=== PATIENT | male | born 1950 | race African-American/Black ===

== ENCOUNTER 2025-04-29 08:19 | Inpatient (IN) | payer OTHER, MEDICARE ==
[2025-04-29] VITALS (13 sets, daily range): BP systolic 103–131; BP diastolic 63–84; PULSE 56–96; RESP 14–22; TEMP 97.4–98.3; O2SAT 90–99
[~2025-04-29] VITALS: Ht 182.9 cm; Wt 95.2 kg
--- NOTE | 2025-04-29 08:31 | ECG ---
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
[2025-04-29] MEDS: ALBUTEROL SULF 2.5 MG/0.5ML(0.5%) NEB SOLN NEB ONE ×2 (08:49→11:19)
[2025-04-29] MEDS: IPRATROPIUM BROM 0.5 MG/2.5ML INH SOL NEB ONE ×2 (08:50→11:19)
--- NOTE | 2025-04-29 08:53 | ED.PDOC ---
SOB-HPI HPI Comments This is a 74 year old male SHAHLA presenting to the ED with chief complaint of SOB/chest pain. Patient reports that after feeding his pets yesterday morning, he started to experience sudden chest pain, however, it quickly resolved when resting in his home. Patient relays that today he felt the same chest pain with associated SOB, however, it did not resolve on its own and his inhaler did not provide relief. EMS notes patient was 82% on RA, being provided a non-rebreather mask with it going up to 97%. Patient denies any cough, fever, chills, dizziness, headache, or N/V. Chief Complaint: Shortness of Breath Time Seen by MD: 08:51 Primary Care Provider: unknown Reviewed notes: Nurses Notes, Agile Scrum Master Notes, Medications, Allergies Information Source: Patient, Emergency Med Personnel Mode of Arrival: EMS Severity: Moderate Timing: Hours Duration: Since onset Context: At Rest PE Risk Factors: None History of: COPD Prehospital treatment: Oxygen Modifying Factors: Nothing Associated Signs and Symptoms: Chest Pain Quality: Pressure Radiation: No Radiation Location: Substernal Past Medical History PAST MEDICAL HISTORY: CKF, COPD, CVA, High Lipids, HTN, Seizures Surgical History: Unknown Family History Family History: Reviewed,noncontributory to illness Social History Smoker: Non-Smoker Alcohol: Denies ETOH Use Drugs: Denies Drug Use Lives In: Home Constitutional: denies: chills, diaphoresis, fatigue, fever, malaise, sweats, weakness, others EENTM: denies: blurred vision, double vision, ear bleeding, ear discharge, ear drainage, ear pain, ear ringing, eye pain, eye redness, hearing loss, mouth pain, mouth swelling, nasal discharge, nose bleeding, nose congestion, nose pain, photophobia, tearing, throat pain, throat swelling, voice changes, others Respiratory: reports: shortness of breath; denies: cough, hemoptysis, orthopnea, SOB at rest, SOB with excertion, stridor, wheezing, others Cardiovascular: reports: chest pain; denies: dizzy spells, diaphoresis, Dyspnea on exertion, edema, irregular heart beat, left arm pain, lightheadedness, palpit ations, PND, syncope, others Gastrointestinal: denies: abdomen distended, abdominal pain, blood streaked b owels, constipated, diarrhea, dysphagia, difficulty swallowing, hematemesis, melena, nausea, poor appetite, poor fluid intake, rectal bleeding, rectal pain, vomiting, others Genitourinary: denies: burning, dysuria, flank pain, frequency, hematuria, incontinence, penile discharge, penile sore, pain, testicle pain, testicle swelling, urgency, others Neurological: denies: dizziness, fainting, headache, left sided numbness, left sided weakness, numbness, paresthesia, pre-existing deficit, right sided numbness, right sided weakness, seizure, speech problems, tingling, tremors, weakness, others Musculoskeletal: denies: back pain, gout, joint pain, joint swelling, muscle pain, muscle stiffness, neck pain, others Integumetry: denies: bruises, change in color, change in hair/nails, dryness, laceration, lesions, lumps, rash, wounds, others Allergic/Immunocompromised: denies: Difficulty Healing, Frequent Infections, Hives, Itching, others Hematologic/Lymphatic: denies: anemia, blood clots, easy bleeding, easy bruisi ng, swollen glands, others Endocrine: denies: excessive hunger, excessive sweating, excessive thirst, exce ssive urination, flushing, intolerance to cold, intolerance to heat, unexplained weight gain, unexplained weight loss, others Psychiatric: denies: anxiety, bipolar disorder, depression, hopeless, panic disorder, schizophrenia, sleepless, suicidal, others All Other Systems: Reviewed and Negative Physical Exam General Appearance: No Apparent Distress, Normal HEENT: Normal ENT Inspection, Pharynx Normal, TMs Normal Neck: Full Range of Motion, Non-Tender, Normal, Normal Inspection Respiratory: Chest Non-Tender, No Accessory Muscle Use, Wheezing (Bilateral expiratory wheezes), Other (Tachypneic ) Cardiovascular: No Edema, No JVD, No Murmur, No Gallop, Normal Peripheral Pulses, Regular Rate/Rhythm Breast Exam: Deferred Gastrointestinal: No Organomegaly, Non Tender, No Pulsatile Mass, Normal Bowel Sounds, Soft Genitalia: Deferred Pelvic: Deferred Rectal: Deferred Extremities: No calf tenderness, Normal capillary refill, Normal inspection, Normal range of motion, Non-tender, No pedal edema Musculoskeletal : Apperance: Normal Neurologic: Alert, 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 Was a procedure done?: No Differential Dx Differential Diagnosis: CHF, COPD, Pneumonia, URI X-Ray, Labs, Meds, VS Vital Signs Date Time Temp Pulse Resp B/P (MAP) Pulse Ox O2 Delivery O2 Flow Rate FiO2 04/29/25 09:15 97.9 86 24 128/62 (84) 94 97.9 04/29/25 08:51 92 19 118/65 (82) 92 04/29/25 08:51 Nasal Cannula* 5 40 04/29/25 08:51 92 Nasal Cannula* 5 40 04/29/25 08:49 14 94 Nasal Cannula* 5 40 04/29/25 08:27 98.2 95 22 120/74 (89) 97 98.2 04/29/25 08:25 91 Lab Test 04/29/25 10:08 04/29/25 09:00 Range/Units Troponin I High Sensitivity 5 6 </=54 ng/L White Blood Count 6.4 4.4-10.8 10^3/uL Red Blood Count 4.44 L 4.5-5.90 10^6/uL Hemoglobin 13.9 13.5-17.5 g/dL Hematocrit 41.0 41.0-53.0 % Mean Corpuscular Volume 92.3 80.0-100.0 fL Mean Corpuscular Hemoglobin 31.3 28.0-32.0 pg Mean Corpuscular Hemoglobin Concent 33.9 32.0-36.0 g/dL Red Cell Distribution Width 13.9 11.8-14.3 % Platelet Count 177 140-450 10^3/uL Mean Platelet Volume 8.5 6.9-10.8 fL Neutrophils (%) (Auto) 69.0 37.0-80.0 % Lymphocytes (%) (Auto) 16.5 10.0-50.0 % Monocytes (%) (Auto) 12.1 H 0.0-12.0 % Eosinophils (%) (Auto) 1.3 0.0-7.0 % Basophils (%) (Auto) 1.1 0.0-2.0 % Neutrophils # (Auto) 4.4 1.6-8.6 10 ^3/uL Lymphocytes # (Auto) 1.1 0.4-5.4 10 ^3/uL Monocytes # (Auto) 0.8 0-1.3 10 ^3/uL Eosinophils # (Auto) 0.1 0-0.8 10 ^3/uL Basophils # (Auto) 0.1 0-0.2 10 ^3/uL Nucleated Red Blood Cells 0.0 % Sodium Level 141 136-145 mmol/L Potassium Level 4.1 3.5-5.1 mmol/L Chloride Level 107 98-107 mmol/L Carbon Dioxide Level 25 20-31 mmol/L Anion Gap 9 5-15 Blood Urea Nitrogen 22 9-23 mg/dL Creatinine 1.11 0.700-1.30 mg/dL Glomerular Filtration Rate Calc 69 >90 mL/min BUN/Creatinine Ratio 19.8 10.0-20.0 Serum Glucose 113 H 74-106 mg/dL Calcium Level 9.5 8.7-10.4 mg/dL B-Type Natriuretic Peptide 80.76 0-100 pg/mL Current Medications Medications (Trade) Dose Ordered Sig/Elliott Route Start Time Stop Time Status Last Admin Albuterol (Ventolin Medneb) 5 mg ONCE ONCE NEB 04/29/25 08:45 04/29/25 08:46 DC 04/29/25 08:49 Ipratropium Barre (Atrovent Medneb) 0.5 mg ONCE ONCE NEB 04/29/25 08:45 04/29/25 08:46 DC 04/29/25 08:50 Methylprednisolone Sodium Succinate (Solu Medrol) 62.5 mg ONCE ONCE IV 04/29/25 08:45 04/29/25 08:46 DC 04/29/25 09:04 Azithromycin (Zithromax Tablet) 500 mg ONCE ONCE PO 04/29/25 08:45 04/29/25 08:46 DC 04/29/25 09:04 Time of 1ST Reevaluation: 09:50 Reevaluation 1ST: Unchanged Patient Education/Counseling: Diagnosis, Treatment Family Education/Counseling: No Family Present Additional Information Previous visits reviewed: The following tests were ordered, and results were reviewed by me: Chest XR, CBC, BMP, BNP, Troponin, EKG Additional Information was gathered from interviewing the following independent historians: EMS I reviewed and agreed with the following test results read by other providers: Chest XR I discussed treatment and results with medical personnel and: patient Comprehensive systems review obtained and negative except for what is stated in the HPI. SEPSIS Sepsis Screen Date sepsis recognized/suspect: Apr 29, 2025 Time Sepsis recognized/suspect: 824 Recent Procedure: No On Antibiotic Therapy: No Respiratory Rate >20: Yes Heart Rate >90: Yes Temp<36 C (96.8 F) or >38.3 C: No SBP <90 or MAP <65 mmHG: No New Acute Mental Status Change: No Is the patient on CPAP, BIPAP,: No Physician Orders Chest Portable (04/29/25 08:38) Troponin-I Hs (04/29/25 11:38) Cefepime 2gm Extended Infusion (04/29/25 11:00) Vancomycin (04/29/25 11:00) Lactic Acid W/ Reflex Order (04/29/25 10:47) Blood Culture (04/29/25 10:47) Albuterol Medneb (Ventolin Medneb) (04/29/25 11:00) Ipratropium Medneb (Atrovent Medneb) (04/29/25 11:00) Vital Signs Date Time Temp Pulse Resp B/P (MAP) Pulse Ox O2 Delivery O2 Flow Rate FiO2 04/29/25 09:15 97.9 86 24 128/62 (84) 94 97.9 04/29/25 08:51 92 19 118/65 (82) 92 04/29/25 08:51 Nasal Cannula* 5 40 04/29/25 08:51 92 Nasal Cannula* 5 40 04/29/25 08:49 14 94 Nasal Cannula* 5 40 04/29/25 08:27 98.2 95 22 120/74 (89) 97 98.2 04/29/25 08:25 91 Laboratory Tests Test 04/29/25 09:00 White Blood Count 6.4 10^3/uL (4.4-10.8) Medications Medications Dose Ordered Sig/Elliott Route Start Time Stop Time Status Last Admin Dose Admin Albuterol 5 mg ONCE ONCE NEB 04/29/25 08:45 04/29/25 08:46 DC 04/29/25 08:49 Azithromycin 500 mg ONCE ONCE PO 04/29/25 08:45 04/29/25 08:46 DC 04/29/25 09:04 Ipratropium Barre 0.5 mg ONCE ONCE NEB 04/29/25 08:45 04/29/25 08:46 DC 04/29/25 08:50 Methylprednisolone Sodium Succinate 62.5 mg ONCE ONCE IV 04/29/25 08:45 04/29/25 08:46 DC 04/29/25 09:04 Departure 1 Departure Time of Disposition: 10:55 (Patient presented with acute shortness of breath concerning for acute on chronic COPD Exacerbation, Pneumonia, ACS, CHF, Pneumothorax. Less likely PE, Dissection. Data: 1. I ordered and reviewed the result of at least 3 labs including a CBC, BMP, and Troponin. 2. I independently interpreted the following tests: Chest X-ray shows .Risk:This patient has a high risk of morbidity due to further diagnostic testing or treatment and may suffer from respiratory or cardiac etiology . Workup reveals a likely COPD Exacerbation and patient should be admitted for further workup. and possible expert consultation.) Impression: Primary Impression: Acute and chronic respiratory failure Additional Impressions: COPD (chronic obstructive pulmonary disease) Qualified Codes: J44.9 - Chronic obstructive pulmonary disease, unspecified Shortness of breath Disposition: ADMITTED INPATIENT Admit to: Med Surg Condition: Serious Critical Care Note Critical Care Time?: Yes Critical care comment: Shortness of breath Authorized and Performed by: Jayda Saleem MD Total critical care time: Approximately 39 minutes Due to a high probability of clinically significant, life threatening deterioration, the patient required my highest level of preparedness to interven e emergently and I personally spent this critical care time directly and personally managing the patient. This critical care time included obtaining a history; examining the patient; pulse oximetry; ordering and review of studies; arranging urgent treatment with development of a management plan; evaluation of patient's response to treatment; frequent reassessment; and, discussions with other providers. This critical care time was performed to assess and manage the high probability of imminent, life-threatening deterioration that could result in multi-organ failure. It was exclusive of separately billable procedures and treating other patients and teaching time. Please see my other sections and the rest of the note for further information on patient assessment and treatment. Stability Stability form required: No Heart Score Heart Score: Heart Score Response (Comments) Value History Highly Suspicious 2 EKG Repolarization Disturb 1 Age >65 2 Risk Factors >3 or Hx ASHD 2 Troponin Normal limit 0 Total 7 I personally scribed for JAYDA SALEEM MD ([email or web address]) on 04/29/25 at 08:53. Electronically submitted by Sandeep Teresa ([email or web address]). JAYDA SALEEM MD Apr 29, 2025 08:53
[2025-04-29] MEDS: AZITHROMYCIN 250 MG TAB PO ONE (09:04)
[2025-04-29] MEDS: methylPREDNISolone SOD SUCC 125 MG/2 ML VL IV ONE (09:04)
[2025-04-29 09:11] LABS: Basophils # (auto) 0.1 10 ^3/uL (0-0.2); Basophils % (auto) 1.1 % (0.0-2.0); Eosinophils # (auto) 0.1 10 ^3/uL (0-0.8); Eosinophils % (auto) 1.3 % (0.0-7.0); Hemoglobin 13.9 g/dL (13.5-17.5); Lymphocytes # (auto) 1.1 10 ^3/uL (0.4-5.4); Lymphocytes % (auto) 16.5 % (10.0-50.0); Mean Corpuscular Hemoglobin 31.3 pg (28.0-32.0); Mean Corpuscular Hgb Conc. 33.9 g/dL (32.0-36.0); Mean Corpuscular Volume 92.3 fL (80.0-100.0); Monocytes # (auto) 0.8 10 ^3/uL (0-1.3); Monocytes % (auto) 12.1 % (0.0-12.0); Neutrophils # (auto) 4.4 10 ^3/uL (1.6-8.6); Platelet Count (auto) 177 10^3/uL (140-450); Red Blood Cells 4.44 10^6/uL (4.5-5.90); Red Cell Distribution Width 13.9 % (11.8-14.3); White Blood Cell 6.4 10^3/uL (4.4-10.8)
--- NOTE | 2025-04-29 09:16 | DVH ---
CLINICAL INFORMATION: 74 years old, Male; shortness of breath. TECHNIQUE: Single AP portable chest radiograph was obtained. COMPARISON: None FINDINGS: Lungs: Emphysematous changes with hyperaeration of the lungs and flattening of the diaphragm. Bilater al interstitial opacities, right greater than left, of uncertain chronicity. Superimposed patchy airs pace opacities in the right mid lung/perihilar region. Cardiac: Heart size is within normal limits. Pulmonary vasculature: Unremarkable. Mediastinum/kg: Unremarkable. Bones: No acute osseous abnormality identified. Other: No other significant findings. IMPRESSION: 1. Bilateral interstitial opacities, of uncertain chronicity. Infectious or inflammatory etiology not excluded. Patchy airspace opacities in the right mid lung / perihilar region are nonspecific. May b e infectious or inflammatory in nature. CT could be considered to further characterize. 2. Emphysematous changes as described above.
[2025-04-29 09:29] LABS: Anion Gap 9 (5-15); Carbon Dioxide 25 mmol/L (20-31); Chloride 107 mmol/L (98-107); Potassium 4.1 mmol/L (3.5-5.1); Sodium 141 mmol/L (136-145)
[2025-04-29 09:30] LABS: Calcium 9.5 mg/dL (8.7-10.4)
[2025-04-29 09:35] LABS: BUN/Creatinine Ratio 19.8 (10.0-20.0); Blood Urea Nitrogen 22 mg/dL (9-23)
[2025-04-29 09:48] LABS: Glucose 113 mg/dL (74-106)
[2025-04-29] MEDS ORDERED: NITROGLYCERIN 0.4 MG SL TAB SL PRN (11:30)
[2025-04-29] MEDS ORDERED: ONDANSETRON HCL 4 MG/2 ML VIAL IV PRN (11:30)
[2025-04-29] MEDS ORDERED: ACETAMINOPHEN 325 MG TAB PO PRN (11:30)
[2025-04-29] MEDS: VANCOMYCIN 1GM/200ML PM 200 ML IV ONE (11:37)
--- NOTE | 2025-04-29 12:29 | DVHHP2 ---
History of Present Illness Reason for Visit: SOB History of Present Illness Ariel Talley is a 74-year-old male with past medical history of hypertension, hyperlipidemia, COPD, CKD, CVA, depression, seizures, prostate enlargement on radiation, and prostate cancer who presents to the ED with shortness of breath. Patient reports that the shortness of breath started yesterday when he was feeding his dogs. He also states he does not use home oxygen. Upon examination patient is currently on 3 L oxygen via nasal cannula. Patient states that he ambulates with a front wheel walker and lives at home with his as well as his daughter. Patient reports that he received radiation at [facility] for 14 days for his prostate. Patient denies any recent sick contacts, recent travels, recent ingestion of spoiled food, recent trauma or injury, fever, chills, lightheadedness, weakness, dizziness, abdominal pain, nausea, vomiting, diarrhea, or urinary symptoms. Patient denies any chest pain. 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 Past Medical History Prostate cancer status post radiation for 14 days at [facility] Past Surgical History: None Family History: None Smoke: No ALCOHOL: none Drugs: None Lives: with Family Domestic Violence: Neg Review of Systems Respiratory: Shortness of breath Allergies: Coded Allergies: NO KNOWN ALLERGIES (Unverified , 04/29/25) Medications Current Medications Medications Dose Ordered Sig/Elliott Route Start Time Stop Time Status Last Admin Dose Admin Ondansetron HCl 4 mg Q4HP PRN IV 04/29/25 11:30 UNV Acetaminophen 650 mg Q6HP PRN PO 04/29/25 11:30 UNV Nitroglycerin 0.4 mg Q5MINP PRN SL 04/29/25 11:30 UNV Morphine Sulfate 2 mg Q30M PRN IV 04/29/25 11:30 UNV Ceftriaxone Sodium 50 ml @ 100 mls/hr DAILY@09 IV 04/29/25 11:30 UNV Exam Vital Signs Vital Signs Date Time Temp Pulse Resp B/P (MAP) Pulse Ox O2 Delivery O2 Flow Rate FiO2 04/29/25 11:19 20 94 Nasal Cannula* 4 36 04/29/25 09:15 97.9 86 128/62 (84) 97.9 General Appearance: Alert, Oriented X3, Cooperative, mild distress HEENT: Atraumatic, PERRLA, EOMI Respiratory: Normal air movement Cardiovascular: Regular rate, Normal S1, Normal S2 Abdominal: Normal bowel sounds, Soft Extremities: No clubbing, No cyanosis, Normal pulses Skin: No significant lesion Neuro: Normal speech, Normal tone, Sensation intact Psych/Mental Status: Mental status NL, Mood NL Labs/Xrays Labs Test 04/29/25 11:20 04/29/25 10:08 04/29/25 09:00 Range/Units Lactic Acid Level 1.9 0.4-2.0 mmol/L Troponin I High Sensitivity 5 </=54 ng/L White Blood Count 6.4 4.4-10.8 10^3/uL Red Blood Count 4.44 L 4.5-5.90 10^6/uL Hemoglobin 13.9 13.5-17.5 g/dL Hematocrit 41.0 41.0-53.0 % Mean Corpuscular Volume 92.3 80.0-100.0 fL Mean Corpuscular Hemoglobin 31.3 28.0-32.0 pg Mean Corpuscular Hemoglobin Concent 33.9 32.0-36.0 g/dL Red Cell Distribution Width 13.9 11.8-14.3 % Platelet Count 177 140-450 10^3/uL Mean Platelet Volume 8.5 6.9-10.8 fL Neutrophils (%) (Auto) 69.0 37.0-80.0 % Lymphocytes (%) (Auto) 16.5 10.0-50.0 % Monocytes (%) (Auto) 12.1 H 0.0-12.0 % Eosinophils (%) (Auto) 1.3 0.0-7.0 % Basophils (%) (Auto) 1.1 0.0-2.0 % Neutrophils # (Auto) 4.4 1.6-8.6 10 ^3/uL Lymphocytes # (Auto) 1.1 0.4-5.4 10 ^3/uL Monocytes # (Auto) 0.8 0-1.3 10 ^3/uL Eosinophils # (Auto) 0.1 0-0.8 10 ^3/uL Basophils # (Auto) 0.1 0-0.2 10 ^3/uL Nucleated Red Blood Cells 0.0 % Sodium Level 141 136-145 mmol/L Potassium Level 4.1 3.5-5.1 mmol/L Chloride Level 107 98-107 mmol/L Carbon Dioxide Level 25 20-31 mmol/L Anion Gap 9 5-15 Blood Urea Nitrogen 22 9-23 mg/dL Creatinine 1.11 0.700-1.30 mg/dL Glomerular Filtration Rate Calc 69 >90 mL/min BUN/Creatinine Ratio 19.8 10.0-20.0 Serum Glucose 113 H 74-106 mg/dL Calcium Level 9.5 8.7-10.4 mg/dL B-Type Natriuretic Peptide 80.76 0-100 pg/mL CLINICAL INFORMATION: 74 years old, Male; shortness of breath. TECHNIQUE: Single AP portable chest radiograph was obtained. COMPARISON: None FINDINGS: Lungs: Emphysematous changes with hyperaeration of the lungs and flattening of the diaphragm. Bilateral interstitial opacities, right greater than left, of uncertain chronicity. Superimposed patchy airspace opacities in the right mid lung/perihilar region. Cardiac: Heart size is within normal limits. Pulmonary vasculature: Unremarkable. Mediastinum/kg: Unremarkable. Bones: No acute osseous abnormality identified. Other: No other significant findings. IMPRESSION: 1. Bilateral interstitial opacities, of uncertain chronicity. Infectious or inflammatory etiology not excluded. Patchy airspace opacities in the right mid lung / perihilar region are nonspecific. May be infectious or inflammatory in nature. CT could be considered to further characterize. 2. Emphysematous changes as described above. Assessment/Plan Assessment/Plan Assessment Acute hypoxic respiratory failure Acute on chronic COPD exacerbation Sinus with PVCs noted on the monitor History of hypertension History of hyperlipidemia History of COPD History of CKD History of CVA History of depression History of seizures History of prostate enlargement status post radiation for 14 days at [facility] History of prostate cancer Plan Admit to tele Duo nebs IV antibiotics-ceftriaxone + azithromycin Vancomycin, cefepime and azithromycin given in ED IV steroids Blood cultures Lactic level Troponin negative x2 Chest x-ray BNP EKG UA UDS Duo nebs Mag level Mag replacement Antitussives Diet Home medications reconciled - Patient states that he is on Plavix DVT prophylaxis-SCDs PUD prophylaxis-not indicated no history of GERD or GI bleed Discussed plan of care with patient and nurse Patient had a coughing spell and was noted to have subconjunctival hemorrhage. Monitor and ordered antitussives. Plan discussed with: Patient My Orders Orders - JEFRY REGALADO Procedure Category Date Status Time Admit ADMIT 04/29/25 Transmitted 11:21 Allergies CARLIN 04/29/25 In Process 11:21 Code Status CODE 04/29/25 Transmitted 11:21 Ondansetron Hcl PHA 04/29/25 Logged (Zofran) 11:30 Complete Blood Count LAB 04/30/25 Verified 04:00 Comprehensive LAB 04/30/25 Verified Metabolic Panel 04:00 Cardiac DIET 04/29/25 Transmitted Diet-2gna,Lofat,Lochol Lunch Acetaminophen Tablet PHA 04/29/25 Logged (Tylenol Tablet) 11:30 Nitroglycerin PHA 04/29/25 Logged Sublingual (Ntrostat 11:30 Morphine Sulfate PHA 04/29/25 Logged Injection 11:30 Stat Ekg For Chest CARLIN 04/29/25 In Process Pain 11:21 Notify Md Of Changes [facility] 04/29/25 In Process From Base 11:21 Marine Equipment Engineer For [facility] 04/29/25 In Process 24 Hours 11:21 Emergency Dysrhythmia [facility] 04/29/25 In Process Protocol 11:21 Rhythm Strips Once [facility] 04/29/25 In Process Every Shift 11:21 Oxygen By Nasal RT 04/29/25 Transmitted Cannula 11:21 Ceftriaxone 1gm/50ml PHA 04/29/25 Logged D5w (Rocephin) 11:30 Azithromycin 500mg/ PHA 04/29/25 Logged 250ml (Zithromax 50 11:30 Albuterol Medneb PHA 04/29/25 Logged (Ventolin Medneb) 14:00 Ipratropium Medneb PHA 04/29/25 Logged (Atrovent Medneb) 14:00 Methylprednisolone PHA 04/29/25 Transmitted Sod Succ (Solu Medrol 22:00 Urinalysis LAB 04/29/25 Transmitted 11:21 Drug Screen LAB 04/29/25 Transmitted 11:21 Clopidogrel Bisulfate PHA 04/29/25 Transmitted (Plavix) 12:30 Magnesium Alex PHA 04/29/25 Verified 12:30 Magnesium LAB 04/29/25 Verified 12:28 Date of Service: Apr 29, 2025 Billing Provider: JEFRY REGALADO Common Visit Codes: [id number] INP/OBS CARE (HIGH) JEFRY REGALADO Apr 29, 2025 12:29
[2025-04-29] MEDS: CEFEPIME 2GM/50ML NS 50 ML IV ONE (12:49)
[2025-04-29] MEDS: ALBUTEROL SULF 2.5 MG/0.5ML(0.5%) NEB SOLN NEB SCH (13:56)
[2025-04-29] MEDS: IPRATROPIUM BROM 0.5 MG/2.5ML INH SOL NEB SCH (13:56)
[2025-04-29] MEDS: CLOPIDOGREL BISULFATE 75 MG TAB PO SCH (14:13)
[2025-04-29] MEDS: MAGNESIUM SULFATE 1GM/100ML 100 ML IV ONE (14:23)
[2025-04-29] MEDS: guaiFENesin-DM 100/10mg/5ml SYR PO PRN (14:58)
[2025-04-29] MEDS: MORPHINE SULFATE INJ 2 MG/ml SYRG IV PRN ×2 (18:41→22:28)
[2025-04-29 21:19] LABS: Urine Bacteria FEW /hpf (None Seen); Urine Blood Negative /uL (Negative); Urine Clarity Clear (Clear); Urine Color Yellow (Yellow); Urine Hyaline Cast FEW /lpf (0 - 2); Urine Mucus FEW (None Seen); Urine Protein, UAD TRACE (Negative); Urine Specific Gravity 1.026 (1.001-1.035); Urine Squamous Epithelial Cell FEW /hpf (<5); Urine Urobilinogen Normal (Negative); Urine WBC 1 /HPF (0-3); Urine pH 5.5 (5.0-9.0)
[2025-04-29 21:30] LABS: Barbiturate Scree,Urine Neg (NEGATIVE); Opiate Scree,Urine Neg (NEGATIVE); Phencyclidine Screen, Urine Neg (NEGATIVE)
[2025-04-29 21:36] LABS: Amphetamine Screen, Urine Neg (NEGATIVE); Benzodiazephine Screen, Urine Neg (NEGATIVE); Cannabinoid Screen, Urine Neg (NEGATIVE); Cocaine Screen, Urine Neg (NEGATIVE)
[2025-04-29] MEDS: methylPREDNISolone SOD SUCC 125 MG/2 ML VL IV SCH (22:28)
[2025-04-29] MEDS: TAMSULOSIN HYDROCHLORIDE 0.4 MG CAP PO SCH (22:28)
[2025-04-29] MEDS: GABAPENTIN 100 MG CAP PO SCH (22:28)
[2025-04-29] MEDS: LOSARTAN POTASSIUM 50 MG TAB PO SCH (22:29)
[2025-04-30] VITALS (19 sets, daily range): BP systolic 99–125; BP diastolic 69–91; PULSE 46–97; RESP 16–20; TEMP 98–98.2; O2SAT 92–99
[2025-04-30] MEDS: LORazepam 2MG/ML-1ML VIAL IV PRN (02:28)
[2025-04-30 05:50] LABS: Basophils # (auto) 0 10 ^3/uL (0-0.2); Basophils % (auto) 0.2 % (0.0-2.0); Eosinophils # (auto) 0 10 ^3/uL (0-0.8); Hematocrit 37.9 % (41.0-53.0); Hemoglobin 12.8 g/dL (13.5-17.5); Lymphocytes # (auto) 0.6 10 ^3/uL (0.4-5.4); Lymphocytes % (auto) 9.1 % (10.0-50.0); Mean Corpuscular Hemoglobin 30.8 pg (28.0-32.0); Mean Corpuscular Hgb Conc. 33.7 g/dL (32.0-36.0); Mean Corpuscular Volume 91.5 fL (80.0-100.0); Monocytes # (auto) 0.3 10 ^3/uL (0-1.3); Monocytes % (auto) 4.3 % (0.0-12.0); Neutrophils # (auto) 5.5 10 ^3/uL (1.6-8.6); Neutrophils % (auto) 86.4 % (37.0-80.0); Platelet Count (auto) 202 10^3/uL (140-450); Red Blood Cells 4.14 10^6/uL (4.5-5.90); Red Cell Distribution Width 13.5 % (11.8-14.3); White Blood Cell 6.4 10^3/uL (4.4-10.8)
[2025-04-30 06:08] LABS: Alanine Aminotransferase 26 U/L (7-40); Albumin 3.8 g/dL (3.2-4.8); Alkaline Phosphatase 115 U/L (46-116); Anion Gap 10 (5-15); Aspartate Aminotransferase 28 U/L (<34); BUN/Creatinine Ratio 21.7 (10.0-20.0); Calcium 9.6 mg/dL (8.7-10.4); Carbon Dioxide 23 mmol/L (20-31); Potassium 4.8 mmol/L (3.5-5.1); Sodium 142 mmol/L (136-145); Total Protein 6.6 g/dL (5.7-8.2)
[2025-04-30 06:09] LABS: Bilirubin, Total 0.2 mg/dL (0.2-1.0); Blood Urea Nitrogen 33 mg/dL (9-23); Chloride 109 mmol/L (98-107); Glucose 166 mg/dL (74-106)
[2025-04-30] MEDS: cefTRIAXone 1GM/50ML D5W 50 ML IV SCH (09:19)
[2025-04-30] MEDS: PHENYTOIN SODIUM 100 MG CAP PO SCH (09:19)
[2025-04-30] MEDS: ATORVASTATIN 20 MG TAB PO SCH (09:20)
[2025-04-30] MEDS: DULoxetine HCL 30 MG CAP PO SCH (09:20)
[2025-04-30] MEDS: ARIPIPRAZOLE 2 MG PO SCH (09:21)
[2025-04-30] MEDS: amLODIPine BESYLATE 5 MG TAB GT SCH (09:34)
[2025-04-30] MEDS: AZITHROMYCIN 500MG/ 250ML 250 ML IV SCH (10:34)
--- NOTE | 2025-04-30 13:29 | DVHPN2 ---
Reviewed: Care Plan, H&P, Labs, Medications, Previous Orders, Radiology Changes from previous H/P or p: No Changes Respiratory: Shortness of breath Objective Vitals Vital Signs Date Time Temp Pulse Resp B/P (MAP) Pulse Ox O2 Delivery O2 Flow Rate FiO2 04/30/25 13:00 98.0 81 19 125/91 (102) 96 98.0 04/30/25 11:03 Nasal Cannula* 5 40 Intake/Output Intake and Output 04/30/25 07:00 Intake Total 800.0 ml Balance 800.0 ml Intake Oral 450 ml IV Total 350.0 ml # Voids 1 Medications Current Medications Medications Dose Ordered Sig/Elliott Route Start Time Stop Time Status Last Admin Dose Admin Ondansetron HCl 4 mg Q4HP PRN IV 04/29/25 11:30 Acetaminophen 650 mg Q6HP PRN PO 04/29/25 11:30 Nitroglycerin 0.4 mg Q5MINP PRN SL 04/29/25 11:30 Morphine Sulfate 2 mg Q30M PRN IV 04/29/25 11:30 04/29/25 18:41 2 MG Ceftriaxone Sodium 50 ml @ 100 mls/hr DAILY@09 IV 04/30/25 09:00 04/30/25 09:19 100 MLS/HR Azithromycin 250 ml @ 125 mls/hr DAILY IV 04/30/25 10:00 04/30/25 10:34 125 MLS/HR Albuterol 2.5 mg Q4HWA NEB 04/29/25 14:00 04/30/25 11:03 2.5 MG Ipratropium [place] 0.5 mg Q4HWA NEB 04/29/25 14:00 04/30/25 11:03 0.5 MG Methylprednisolone Sodium Succinate 80 mg BID IV 04/29/25 22:00 04/30/25 09:22 80 MG Clopidogrel Bisulfate 75 mg DAILY PO 04/29/25 12:30 04/30/25 09:20 75 MG Guaifenesin/ Dextromethorphan 10 ml Q4HP PRN PO 04/29/25 14:45 04/30/25 02:40 10 ML Amlodipine Besylate 10 mg DAILY GT 04/30/25 10:00 04/30/25 09:34 10 MG Gabapentin 100 mg TID PO 04/29/25 22:00 04/30/25 06:15 100 MG Losartan Potassium 50 mg BID PO 04/29/25 22:00 04/30/25 09:34 50 MG Phenytoin Sodium 400 mg DAILY PO 04/30/25 10:00 04/30/25 09:19 400 MG Tamsulosin HCl 0.4 mg BID PO 04/29/25 22:00 04/30/25 09:20 0.4 MG Patient Own Medication 2 mg DAILY PO 04/30/25 10:00 Atorvastatin Calcium 40 mg DAILY PO 04/30/25 10:00 04/30/25 09:20 40 MG Duloxetine HCl 120 mg DAILY PO 04/30/25 10:00 04/30/25 09:20 120 MG Morphine Sulfate 1 mg Q4HP PRN IV 04/29/25 22:30 04/29/25 22:28 1 MG Lorazepam 1 mg Q2HP PRN IV 04/30/25 02:30 04/30/25 02:28 1 MG Laboratory Results Laboratory Tests 04/30/25 04:52 Chemistry Test 04/30/25 04:52 Albumin 3.8 g/dL (3.2-4.8) Calcium Level 9.6 mg/dL (8.7-10.4) Total Protein 6.6 g/dL (5.7-8.2) LFT Test 04/30/25 04:52 Alanine Aminotransferase (ALT) 26 U/L (7-40) Alkaline Phosphatase 115 U/L (46-116) Aspartate Amino Transferase (AST) 28 U/L (<34) Total Bilirubin 0.2 mg/dL (0.2-1.0) Urinalysis Test 04/29/25 21:00 Urine Color Yellow (Yellow) Urine Clarity Clear (Clear) Urine pH 5.5 (5.0-9.0) Urine Specific [place] 1.026 (1.001-1.035) Urine Protein Trace (Negative) H Urine Ketones Trace (Negative) Urine Blood Negative /uL (Negative) Urine Nitrite Negative (Negative) Urine Bilirubin Negative (Negative) Urine Urobilinogen Normal mg/dL (Negative) Urine Leukocyte Esterase Negative /uL (Negative) Urine RBC 2 /hpf (0 - 3) Urine Microscopic WBC 1 /HPF (0-3) Urine Squamous Epithelial Cells Few /hpf (<5) Urine Bacteria Few /hpf (None Seen) H Urine Hyaline Casts Few /lpf (0 - 2) Urine Mucus Few (None Seen) Urine Glucose Normal mg/dL (Normal) Microbiology Microbiology Date/Time Source Procedure Growth Status 04/29/25 18:27 Nose MRSA Screen - Final Complete 04/29/25 11:20 Blood Blood Culture - Preliminary NO GROWTH AFTER 24 HOURS OF INCUBATION. Resulted Labs and/or images reviewed: Labs reviewed by me, Image(s) reviewed by me Assessment/Plan Assessment/Plan Acute hypoxic respiratory failure oxygen by nasal cannula Bilateral community-acquired pneumonia Gram-positive versus Gram-negative: Rocephin azithromycin albuterol Atrovent Solu-Medrol, consult for Dr. Juarez Acute on chronic COPD exacerbation Hypertension Hypercholesterolemia CKD History of CVA Depression Seizures History of prostate cancer on chemo Moderate dehydration Severe malnutrition Time spent 70 minutes Advanced care planning time 20 minutes Patient is full code Ordered D-dimer Darlin test rapid flu test Plan discussed with: Patient My Orders Orders - BRUNA ALMEIDA MD Procedure Category Date Status Time Covid19 Antigen Sandra LAB 04/30/25 Logged Rapid Influenza A&B LAB 04/30/25 Logged 13:16 D-Dimer LAB 04/30/25 Logged 13:17 Communication Order ORDERS 04/30/25 Transmitted 13:17 *Consult CONS 04/30/25 Verified / 13:18 Date of Service: Apr 30, 2025 Billing Provider: BRUNA ALMEIDA MD Common Visit Codes: [id number] CARE 30-74 MIN BRUNA ALMEIDA MD Apr 30, 2025 13:29
[2025-04-30 14:44] LABS: COVID19 ANTIGEN SOFIA FIA NEGATIVE (NEGATIVE); Rapid Influenza A Negative (Negative); Rapid Influenza B Negative (Negative)
--- NOTE | 2025-04-30 15:25 | DVHINCON2 ---
Date of service: Apr 30, [address] Rahel Villalba Reason for Consultation Acute respiratory failure History of Present Illness History Source: Patient Exam Limitations: No limitations HPI Patient is a 74-year old gentleman with a history of COPD, CKD, CVA, hypertension and prostate cancer who presented with shortness of breath and cough. Was seen in the emergency room where he was admitted for symptoms consistent with acute exacerbation of COPD the patient was admitted for further management. Chest x-ray demonstrated right perihilar infiltrates suggestive of pneumonia vs mass and pulmonology was consulted to assist in management. Past Medical History Cardiac: HTN Pulmonary: COPD Central Nervous System: CVA GI: No pertinent Hx Hemotology/Oncology: Cancer Hepatobiliary: No pertinent Hx Psychiatric: No pertinent Hx Musculoskeletal: No pertinent Hx Rheumotologic: No pertinent Hx Infectious Disease: No peritnent Hx ENT: No pertinent Hx Renal/: CKD Endocrine: No pertinent Hx Dermatology: No pertinent Hx Past Surgical History: No pertinent Hx Family History: No pertinent Hx Smoker: No Hx (Negative) Alocohol: None Drugs: None Lives with: With family Domestic Violence: Neg Review of Systems Constitutional: No symptom reported Ears, Nose, & Throat: No symptom reported Eyes: No symptom reported Pulmonary/Respiratory: Dyspnea, Cough Cardiovascular: No symptom reported Gastrointestinal: No symptom reported Genitourinary: No symptom reported Musculoskeletal: No symptom reported Skin: No symptom reported Psychiatric: No symptom reported Endocrine: No symptom reported Hemotologic/Lymphatic: No symptom reported H&P Exam Vital Signs Vital Signs Date Time Temp Pulse Resp B/P (MAP) Pulse Ox O2 Delivery O2 Flow Rate FiO2 04/30/25 14:34 76 18 04/30/25 14:24 95 04/30/25 13:00 98.0 125/91 (102) 98.0 04/30/25 11:03 Nasal Cannula* 5 40 General Appeara: Well developed, Well nourished, Normal Appearance Head Exam: Normal inspection Neck Exam: Normal inspection, Non-tender, Normal alignment Eye Exam: bilateral eye Normal inspection, bilateral eye PERRL, bilateral eye EOMI Ear Exam: bilateral ear Auricle normal, bilateral ear Canal normal, bilateral ear TM normal Nasal Exam: Normal inspection Mouth: Normal Inspection Pulmonary/Respiratory: Decreased breath sounds Cardiovascular/Chest: Normal inspection, Regular rate, Normal Rhythm Peripheral Pulses: 4+ Radial (R), 4+ Radial (L), 4+ Brachial (R), 4+ Brachial (L) Abdominal Exam: Normal bowel sounds Labs/Xrays Labs Test 04/30/25 14:11 04/30/25 14:00 04/30/25 04:52 04/29/25 21:00 Range/Units D-Dimer, Quantitative 4.14 H 0.0-0.49 mg/L FEU Influenza Type A Antigen Negative Negative Influenza Type B Antigen Negative Negative SARS-CoV-2 Antigen (Rapid) Negative NEGATIVE White Blood Count 6.4 4.4-10.8 10^3/uL Red Blood Count 4.14 L 4.5-5.90 10^6/uL Hemoglobin 12.8 L 13.5-17.5 g/dL Hematocrit 37.9 L 41.0-53.0 % Mean Corpuscular Volume 91.5 80.0-100.0 fL Mean Corpuscular Hemoglobin 30.8 28.0-32.0 pg Mean Corpuscular Hemoglobin Concent 33.7 32.0-36.0 g/dL Red Cell Distribution Width 13.5 11.8-14.3 % Platelet Count 202 140-450 10^3/uL Mean Platelet Volume 9.1 6.9-10.8 fL Neutrophils (%) (Auto) 86.4 H 37.0-80.0 % Lymphocytes (%) (Auto) 9.1 L 10.0-50.0 % Monocytes (%) (Auto) 4.3 0.0-12.0 % Eosinophils (%) (Auto) 0.0 0.0-7.0 % Basophils (%) (Auto) 0.2 0.0-2.0 % Neutrophils # (Auto) 5.5 1.6-8.6 10 ^3/uL Lymphocytes # (Auto) 0.6 0.4-5.4 10 ^3/uL Monocytes # (Auto) 0.3 0-1.3 10 ^3/uL Eosinophils # (Auto) 0 0-0.8 10 ^3/uL Basophils # (Auto) 0 0-0.2 10 ^3/uL Nucleated Red Blood Cells 0.0 % Sodium Level 142 136-145 mmol/L Potassium Level 4.8 3.5-5.1 mmol/L Chloride Level 109 H 98-107 mmol/L Carbon Dioxide Level 23 20-31 mmol/L Anion Gap 10 5-15 Blood Urea Nitrogen 33 #H 9-23 mg/dL Creatinine 1.52 H 0.700-1.30 mg/dL Glomerular Filtration Rate Calc 47 >90 mL/min BUN/Creatinine Ratio 21.7 H 10.0-20.0 Serum Glucose 166 H 74-106 mg/dL Calcium Level 9.6 8.7-10.4 mg/dL Total Bilirubin 0.2 0.2-1.0 mg/dL Aspartate Amino Transferase (AST) 28 <34 U/L Alanine Aminotransferase (ALT) 26 7-40 U/L Alkaline Phosphatase 115 46-116 U/L Total Protein 6.6 5.7-8.2 g/dL Albumin 3.8 3.2-4.8 g/dL Urine Color Yellow Yellow Urine Clarity Clear Clear Urine pH 5.5 5.0-9.0 Urine Specific [place] 1.026 1.001-1.035 Urine Protein Trace H Negative Urine Ketones Trace Negative Urine Blood Negative Negative /uL Urine Nitrite Negative Negative Urine Bilirubin Negative Negative Urine Urobilinogen Normal Negative mg/dL Urine Leukocyte Esterase Negative Negative /uL Urine RBC 2 0 - 3 /hpf Urine Microscopic WBC 1 0-3 /HPF Urine Squamous Epithelial Cells Few <5 /hpf Urine Bacteria Few H None Seen /hpf Urine Hyaline Casts Few 0 - 2 /lpf Urine Mucus Few None Seen Urine Glucose Normal Normal mg/dL Urine Opiates Screen Neg NEGATIVE Urine Fentanyl Screen Neg NEGATIVE Urine Barbiturates Screen Neg NEGATIVE Urine Phencyclidine Screen Neg NEGATIVE Urine Amphetamines Screen Neg NEGATIVE Urine Benzodiazepines Screen Neg NEGATIVE Urine Cocaine Screen Neg NEGATIVE Urine Cannabinoids Screen Neg NEGATIVE Test 04/29/25 11:20 04/29/25 10:08 04/29/25 09:00 Range/Units Lactic Acid Level 1.9 0.4-2.0 mmol/L Troponin I High Sensitivity 5 </=54 ng/L Magnesium Level 2.2 1.6-2.6 mg/dL B-Type Natriuretic Peptide 80.76 0-100 pg/mL Microbiology Date/Time Source Procedure Growth Status 04/29/25 18:27 Nose MRSA Screen - Final Complete 04/29/25 11:20 Blood Blood Culture - Preliminary NO GROWTH AFTER 24 HOURS OF INCUBATION. Resulted Assessment/Plan Plan Impression Acute hypoxemic respiratory failure Acute COPD exacerbation Hx of prostate cancer Pneumonia vs mass Atelectasis Patient seen and examined Events Low oxygen requirements On 2 liters nasal cannula Vital signs stable Labs and imaging reviewed Chest x-ray shows infiltrates in the perihilar region, ? pneumonia vs mass Management Supplemental oxygen Titrate to maintain sats 90% or above Incentive spirometry Antibiotics Bronchodilators Steroids for COPD management Monitor renal function Monitor electrolytes Supplement as needed Obtain CT of the chest to better characterize lung parenchyma Obtain ultrasound of the lower extremities to rule out clots DVT prophylaxis Plan discussed with: Patient PRIMO MARIN MD Apr 30, 2025 15:25
--- NOTE | 2025-04-30 16:20 | DVH ---
US BiLat Lower DVT HISTORY: R/O DVT COMPARISON: None TECHNIQUE: Duplex doppler evaluation of the deep venous system of the lower extremity from the common femoral veins, superficial femoral vein, great saphenous vein, deep femoral vein, popliteal vein, an d calf veins, including color doppler and spectral/pulsed waveform analysis, was performed. FINDINGS: Right: - Common femoral vein: Compressible - Deep femoral vein: Compressible - Femoral vein: Compressible - Popliteal vein: Compressible - Posterior tibial vein: Waveforms present - Other: Nothing Left: - Common femoral vein: Compressible - Deep femoral vein: Compressible - Femoral vein: Compressible - Popliteal vein: Compressible - Posterior tibial vein: Waveforms present - Other: Nothing IMPRESSION: No right or left lower extremity deep venous thrombosis.
[2025-05-01] VITALS (16 sets, daily range): BP systolic 112–143; BP diastolic 69–93; PULSE 55–85; RESP 16–18; TEMP 97.4–98.4; O2SAT 92–99
[2025-05-01] MEDS: IPRATROPIUM BROM 0.5 MG/2.5ML INH SOL NEB SCH (07:51)
[2025-05-01] MEDS: ALBUTEROL SULF 2.5 MG/0.5ML(0.5%) NEB SOLN NEB SCH (07:51)
--- NOTE | 2025-05-01 08:14 | DVHPN2 ---
Reviewed: Care Plan, H&P, Labs, Medications, Previous Orders, Radiology Changes from previous H/P or p: No Changes Respiratory: Shortness of breath Objective Vitals Vital Signs Date Time Temp Pulse Resp B/P (MAP) Pulse Ox O2 Delivery O2 Flow Rate FiO2 05/01/25 07:52 98 Nasal Cannula 4.0 05/01/25 07:52 82 18 05/01/25 07:52 36 05/01/25 04:54 97.8 131/91 (104) 97.8 Intake/Output Intake and Output 05/01/25 07:00 Intake Total 1220 ml Output Total 400 ml Balance 820 ml Intake Oral 920 ml IV Total 300 ml Output Urine Total 400 ml # Voids 2 Medications Current Medications Medications Dose Ordered Sig/Elliott Route Start Time Stop Time Status Last Admin Dose Admin Ondansetron HCl 4 mg Q4HP PRN IV 04/29/25 11:30 Acetaminophen 650 mg Q6HP PRN PO 04/29/25 11:30 Nitroglycerin 0.4 mg Q5MINP PRN SL 04/29/25 11:30 Morphine Sulfate 2 mg Q30M PRN IV 04/29/25 11:30 04/29/25 18:41 2 MG Ceftriaxone Sodium 50 ml @ 100 mls/hr DAILY@09 IV 04/30/25 09:00 04/30/25 09:19 100 MLS/HR Azithromycin 250 ml @ 125 mls/hr DAILY IV 04/30/25 10:00 04/30/25 10:34 125 MLS/HR Methylprednisolone Sodium Succinate 80 mg BID IV 04/29/25 22:00 04/30/25 22:30 80 MG Clopidogrel Bisulfate 75 mg DAILY PO 04/29/25 12:30 04/30/25 09:20 75 MG Guaifenesin/ Dextromethorphan 10 ml Q4HP PRN PO 04/29/25 14:45 05/01/25 03:59 10 ML Amlodipine Besylate 10 mg DAILY GT 04/30/25 10:00 04/30/25 09:34 10 MG Gabapentin 100 mg TID PO 04/29/25 22:00 05/01/25 05:14 100 MG Losartan Potassium 50 mg BID PO 04/29/25 22:00 04/30/25 22:30 50 MG Phenytoin Sodium 400 mg DAILY PO 04/30/25 10:00 04/30/25 09:19 400 MG Tamsulosin HCl 0.4 mg BID PO 04/29/25 22:00 04/30/25 22:30 0.4 MG Patient Own Medication 2 mg DAILY PO 04/30/25 10:00 Atorvastatin Calcium 40 mg DAILY PO 04/30/25 10:00 04/30/25 09:20 40 MG Duloxetine HCl 120 mg DAILY PO 04/30/25 10:00 04/30/25 09:20 120 MG Morphine Sulfate 1 mg Q4HP PRN IV 04/29/25 22:30 04/30/25 22:44 1 MG Lorazepam 1 mg Q2HP PRN IV 04/30/25 02:30 04/30/25 02:28 1 MG Albuterol 2.5 mg Q6HR NEB 05/01/25 06:00 05/01/25 07:51 2.5 MG Ipratropium [place] 0.5 mg Q6HR NEB 05/01/25 06:00 05/01/25 07:51 0.5 MG Laboratory Results Laboratory Tests 04/30/25 04:52 Coagulation Test 04/30/25 14:11 D-Dimer, Quantitative 4.14 mg/L FEU (0.0-0.49) H Urinalysis Test 04/29/25 21:00 Urine Color Yellow (Yellow) Urine Clarity Clear (Clear) Urine pH 5.5 (5.0-9.0) Urine Specific [place] 1.026 (1.001-1.035) Urine Protein Trace (Negative) H Urine Ketones Trace (Negative) Urine Blood Negative /uL (Negative) Urine Nitrite Negative (Negative) Urine Bilirubin Negative (Negative) Urine Urobilinogen Normal mg/dL (Negative) Urine Leukocyte Esterase Negative /uL (Negative) Urine RBC 2 /hpf (0 - 3) Urine Microscopic WBC 1 /HPF (0-3) Urine Squamous Epithelial Cells Few /hpf (<5) Urine Bacteria Few /hpf (None Seen) H Urine Hyaline Casts Few /lpf (0 - 2) Urine Mucus Few (None Seen) Urine Glucose Normal mg/dL (Normal) Microbiology Microbiology Date/Time Source Procedure Growth Status 04/29/25 18:27 Nose MRSA Screen - Final Complete 04/29/25 11:20 Blood Blood Culture - Preliminary NO GROWTH AFTER 24 HOURS OF INCUBATION. Resulted Labs and/or images reviewed: Labs reviewed by me, Image(s) reviewed by me Assessment/Plan Assessment/Plan Acute hypoxic respiratory failure oxygen by nasal cannula Bilateral community-acquired pneumonia Gram-positive versus Gram-negative: Rocephin azithromycin albuterol Atrovent Solu-Medrol, consult for Dr. Juarez Acute on chronic COPD exacerbation Hypertension Hypercholesterolemia CKD History of CVA Depression Seizures History of prostate cancer on chemo Moderate dehydration Severe malnutrition Darlin test negative Flu test negative D-dimer elevated 4.14 DVT ruled out V/Q scan pending Time spent 55 minutes Patient is full code Does not use oxygen at home Plan discussed with: Patient My Orders Orders - BRUNA ALMEIDA MD Procedure Category Date Status Time Communication Order ORDERS 04/30/25 Transmitted 13:17 *Consult CONS 04/30/25 Transmitted / 13:18 Nm Vq Scan NM 04/30/25 Logged 15:05 Bilat Lower Dvt US 04/30/25 Resulted 15:05 Date of Service: May 01, 2025 Billing Provider: BRUNA ALMEIDA MD Common Visit Codes: [id number] INP/OBS CARE(HIGH) BRUNA ALMEIDA MD May 01, 2025 08:14
--- NOTE | 2025-05-01 14:24 | DVHPN2 ---
Progress Note - Dictate Date Seen: May 01, 2025 Medical Necessity Reason Pt with a Central, PICC or Fol: No vital signs Vital Sign Date Time Temp Pulse Resp B/P (MAP) Pulse Ox O2 Delivery O2 Flow Rate FiO2 05/01/25 13:00 97.4 80 16 125/93 (104) 95 97.4 05/01/25 08:00 Nasal Cannula* 4 36 Total Intake and Output 04/30/25 04/30/25 05/01/25 15:00 23:00 07:00 Intake Total 300 ml 500 ml 420 ml Output Total 400 ml Balance 300 ml 500 ml 20 ml medications Current Medications Medications Dose Ordered Sig/Elliott Route Start Time Stop Time Status Last Admin Dose Admin Ondansetron HCl 4 mg Q4HP PRN IV 04/29/25 11:30 Acetaminophen 650 mg Q6HP PRN PO 04/29/25 11:30 Nitroglycerin 0.4 mg Q5MINP PRN SL 04/29/25 11:30 Morphine Sulfate 2 mg Q30M PRN IV 04/29/25 11:30 04/29/25 18:41 2 MG Ceftriaxone Sodium 50 ml @ 100 mls/hr DAILY@09 IV 04/30/25 09:00 05/01/25 09:07 100 MLS/HR Azithromycin 250 ml @ 125 mls/hr DAILY IV 04/30/25 10:00 05/01/25 10:00 125 MLS/HR Methylprednisolone Sodium Succinate 80 mg BID IV 04/29/25 22:00 05/01/25 09:06 80 MG Clopidogrel Bisulfate 75 mg DAILY PO 04/29/25 12:30 05/01/25 09:06 75 MG Guaifenesin/ Dextromethorphan 10 ml Q4HP PRN PO 04/29/25 14:45 05/01/25 03:59 10 ML Amlodipine Besylate 10 mg DAILY GT 04/30/25 10:00 05/01/25 09:06 10 MG Gabapentin 100 mg TID PO 04/29/25 22:00 05/01/25 05:14 100 MG Losartan Potassium 50 mg BID PO 04/29/25 22:00 05/01/25 09:07 50 MG Phenytoin Sodium 400 mg DAILY PO 04/30/25 10:00 05/01/25 09:08 400 MG Tamsulosin HCl 0.4 mg BID PO 04/29/25 22:00 05/01/25 09:05 0.4 MG Patient Own Medication 2 mg DAILY PO 04/30/25 10:00 Atorvastatin Calcium 40 mg DAILY PO 04/30/25 10:00 05/01/25 09:05 40 MG Duloxetine HCl 120 mg DAILY PO 04/30/25 10:00 05/01/25 09:05 120 MG Morphine Sulfate 1 mg Q4HP PRN IV 04/29/25 22:30 04/30/25 22:44 1 MG Lorazepam 1 mg Q2HP PRN IV 04/30/25 02:30 04/30/25 02:28 1 MG Albuterol 2.5 mg Q6HR NEB 05/01/25 06:00 05/01/25 12:14 2.5 MG Ipratropium [place] 0.5 mg Q6HR NEB 05/01/25 06:00 05/01/25 12:14 0.5 MG laboratory and microbiology Laboratory Tests 04/30/25 04:52 Test 04/30/25 04:52 Range/Units Serum Glucose 166 H 74-106 mg/dL Assessment/Plan Impression Acute hypoxemic respiratory failure Acute COPD exacerbation Hx of prostate cancer Pneumonia vs mass Atelectasis Patient seen and examined Events Low oxygen requirements On 2 liters nasal cannula No acute events Labs and imaging reviewed Chest x-ray shows infiltrates in the perihilar region, ? pneumonia vs mass Ultrasound of the lower extremities pending Management Supplemental oxygen Titrate to maintain sats 90% or above Incentive spirometry Continue antibiotics F/u cultures Bronchodilators Steroids for COPD management Monitor renal function Monitor electrolytes Supplement as needed Obtain CT of the chest to better characterize lung parenchyma DVT prophylaxis Dietary Evaluation Review Recommendations by RD: Increase Calorie Intake Comments: 1) Initiate Nepro qd 2) Encourage optimal PO intake 3) Collect HbA1C 4) Follow-up with oncology, nephrology, and cardiology 5) Continue to monitor I&O, labs, and skin integrity Expected Outcomes/Goals: 1) appetite and labs to improve 2) f/u in 3-5 days Plan discussed with: Patient PRIMO MARIN MD May 01, 2025 14:24
--- NOTE | 2025-05-01 19:06 | DVH ---
CLINICAL HISTORY: right hilar mass TECHNIQUE: CT of the chest was performed without intravenous contrast. This exam was performed accord ing to our departmental dose optimization program. Up-to-date CT equipment and radiation dose reducti on techniques are utilized as appropriate. COMPARISON: None FINDINGS: Lower Neck: Small low-density bilateral thyroid nodules. Axilla, Mediastinum and [place]: No axillary lymphadenopathy. No pathologically enlarged mediastinal lym ph nodes. Heart and Great Vessels: Normal-sized heart with small pericardial fluid. Moderate to marked 3-vessel coronary artery calcifications. The thoracic aorta is normal in caliber with mild calcified atheros clerotic plaque. The central pulmonary arteries are normal caliber. Airway, Lungs and Pleura: Trachea and central airways are patent. There is severe centrilobular emphy sema. Scattered linear pleural-parenchymal scarring. There is an irregular opacity or nodule in the l eft upper lobe measuring 2.5 x 1.5 cm on series 3, image 28. Sub 5 mm left lower lobe pulmonary nodul es on series 3, images 37 and 47 irregular nodule in the right lower lobe measuring 1.1 cm on series 3, image 43. There is a small consolidation or mass in the medial right upper and right lower lobe on series 2, image 73. Linear consolidation in the right lower lobe sagittal image 42 No pneumothorax o r pleural effusion. Upper Abdomen: Cholelithiasis. There is extrarenal right renal pelvis. There are multiple hypodense l esions in the liver which are not optimally evaluated without contrast. There is a stent graft in the visualized abdominal aorta. Trace ascites. Chest Wall and Osseous Structures: There is a mild height loss compression fracture of L1 with sclero sis of the vertebral body. Minor thoracic spondylosis. Bony demineralization. IMPRESSION: 1. Severe centrilobular emphysema. 2. There are irregular nodules in the left upper lobe and right lower lobe measuring up to 2.5 cm on the left. DDX include scarring, pneumonia, or neoplasm. PET-CT, biopsy, or follow-up CT chest in 3 m onths recommended. 3. Additional sub 5 mm pulmonary nodules in the left lower lobe which can also be evaluated on follow -up imaging. 4. Small consolidation or mass in the medial perihilar right upper and right lower lobes. DDX includ es pneumonia or mass. This can also be evaluated on follow-up. 5. Mild height loss compression fracture of L1 with sclerosis of the vertebral body suggesting healin g response. 6. Cholelithiasis. 7. Stent graft in the visualized abdominal aorta. Radiation optimization: All CT scans at this facility use at least one of these dose optimization myla hniques: automated exposure control mA and/or kV adjustment per patient size (includes targeted exam s where dose is matched to clinical indication) or iterative reconstruction.
[2025-05-02] VITALS (17 sets, daily range): BP systolic 103–136; BP diastolic 69–98; PULSE 53–88; RESP 14–18; TEMP 97–98.5; O2SAT 92–100
--- NOTE | 2025-05-02 09:23 | DVHPN2 ---
Reviewed: Care Plan, H&P, Labs, Medications, Previous Orders, Radiology Changes from previous H/P or p: No Changes Respiratory: Shortness of breath Objective Vitals Vital Signs Date Time Temp Pulse Resp B/P (MAP) Pulse Ox O2 Delivery O2 Flow Rate FiO2 05/02/25 06:16 61 14 100 05/02/25 06:10 Nasal Cannula* 4 36 05/02/25 05:00 98.4 118/89 (99) 98.4 Intake/Output Intake and Output 05/02/25 07:00 Intake Total 2200 ml Output Total 800 ml Balance 1400 ml Intake Oral 1900 ml IV Total 300 ml Output Urine Total 800 ml # Bowel Movements 1 Medications Current Medications Medications Dose Ordered Sig/Elliott Route Start Time Stop Time Status Last Admin Dose Admin Ondansetron HCl 4 mg Q4HP PRN IV 04/29/25 11:30 Acetaminophen 650 mg Q6HP PRN PO 04/29/25 11:30 Nitroglycerin 0.4 mg Q5MINP PRN SL 04/29/25 11:30 Morphine Sulfate 2 mg Q30M PRN IV 04/29/25 11:30 04/29/25 18:41 2 MG Ceftriaxone Sodium 50 ml @ 100 mls/hr DAILY@09 IV 04/30/25 09:00 05/01/25 09:07 100 MLS/HR Azithromycin 250 ml @ 125 mls/hr DAILY IV 04/30/25 10:00 05/01/25 10:00 125 MLS/HR Methylprednisolone Sodium Succinate 80 mg BID IV 04/29/25 22:00 05/01/25 21:52 80 MG Clopidogrel Bisulfate 75 mg DAILY PO 04/29/25 12:30 05/01/25 09:06 75 MG Guaifenesin/ Dextromethorphan 10 ml Q4HP PRN PO 04/29/25 14:45 05/01/25 22:42 10 ML Amlodipine Besylate 10 mg DAILY GT 04/30/25 10:00 05/01/25 09:06 10 MG Gabapentin 100 mg TID PO 04/29/25 22:00 05/02/25 05:33 100 MG Losartan Potassium 50 mg BID PO 04/29/25 22:00 05/01/25 21:52 50 MG Phenytoin Sodium 400 mg DAILY PO 04/30/25 10:00 05/01/25 09:08 400 MG Tamsulosin HCl 0.4 mg BID PO 04/29/25 22:00 05/01/25 21:51 0.4 MG Patient Own Medication 2 mg DAILY PO 04/30/25 10:00 Atorvastatin Calcium 40 mg DAILY PO 04/30/25 10:00 05/01/25 09:05 40 MG Duloxetine HCl 120 mg DAILY PO 04/30/25 10:00 05/01/25 09:05 120 MG Morphine Sulfate 1 mg Q4HP PRN IV 04/29/25 22:30 05/01/25 21:53 1 MG Lorazepam 1 mg Q2HP PRN IV 04/30/25 02:30 04/30/25 02:28 1 MG Albuterol 2.5 mg Q6HR NEB 05/01/25 06:00 05/02/25 06:07 2.5 MG Ipratropium [place] 0.5 mg Q6HR NEB 05/01/25 06:00 05/02/25 06:07 0.5 MG Laboratory Results Laboratory Tests 04/30/25 04:52 Urinalysis Test 04/29/25 21:00 Urine Color Yellow (Yellow) Urine Clarity Clear (Clear) Urine pH 5.5 (5.0-9.0) Urine Specific [place] 1.026 (1.001-1.035) Urine Protein Trace (Negative) H Urine Ketones Trace (Negative) Urine Blood Negative /uL (Negative) Urine Nitrite Negative (Negative) Urine Bilirubin Negative (Negative) Urine Urobilinogen Normal mg/dL (Negative) Urine Leukocyte Esterase Negative /uL (Negative) Urine RBC 2 /hpf (0 - 3) Urine Microscopic WBC 1 /HPF (0-3) Urine Squamous Epithelial Cells Few /hpf (<5) Urine Bacteria Few /hpf (None Seen) H Urine Hyaline Casts Few /lpf (0 - 2) Urine Mucus Few (None Seen) Urine Glucose Normal mg/dL (Normal) Microbiology Microbiology Date/Time Source Procedure Growth Status 04/29/25 18:27 Nose MRSA Screen - Final Complete 04/29/25 11:20 Blood Blood Culture - Preliminary NO GROWTH AFTER 48 HOURS OF INCUBATION. Resulted Labs and/or images reviewed: Labs reviewed by me, Image(s) reviewed by me Assessment/Plan Assessment/Plan Acute hypoxic respiratory failure oxygen by nasal cannula Bilateral community-acquired pneumonia Gram-positive versus Gram-negative: Rocephin azithromycin albuterol Atrovent Solu-Medrol, consult for Dr. Juarez 2.5 cm left upper lobe nodules by CT , Radiology advised follow up CT in three months Severe emphysema Acute on chronic COPD exacerbation Hypertension Hypercholesterolemia CKD History of CVA Depression Seizures History of prostate cancer on chemo Moderate dehydration Severe malnutrition Darlin test negative Flu test negative D-dimer elevated 4.14 DVT ruled out V/Q scan pending Time spent 55 minutes Patient is full code Does not use oxygen at home Plan discussed with: Patient Date of Service: May 02, 2025 Billing Provider: BRUNA ALMEIDA MD Common Visit Codes: [id number] CARE 30-74 MIN BRUNA ALMEIDA MD May 02, 2025 09:23
--- NOTE | 2025-05-02 13:14 | DVH ---
EXAM: NM NM VQ SCAN HISTORY: PULMONARY EMBOLISM COMPARISON: 04/29/2025 TECHNIQUE: 4.5 mCi of Tc99m MAA were utilized for the perfusion portion of the study. 5.2 mCi of xenon 133 were utilized for the ventilation portion of the study. FINDINGS: No large mismatched defects. Matched defects within the bilateral upper lobes with prior CT demonstr ating extensive upper lobe predominant emphysematous changes. IMPRESSION: Low probability pulmonary emphysema.
--- NOTE | 2025-05-02 18:54 | DVHPN2 ---
Progress Note - Dictate Date Seen: May 02, 2025 Medical Necessity Reason Pt with a Central, PICC or Fol: No vital signs Vital Sign Date Time Temp Pulse Resp B/P (MAP) Pulse Ox O2 Delivery O2 Flow Rate FiO2 05/02/25 16:30 97.0 53 16 103/69 (80) 94 97.0 05/02/25 14:15 3.0 32 05/02/25 08:00 Nasal Cannula* Total Intake and Output 05/01/25 05/01/25 05/02/25 15:00 23:00 07:00 Intake Total 300 ml 1000 ml 900 ml Output Total 400 ml 400 ml Balance 300 ml 600 ml 500 ml medications Current Medications Medications Dose Ordered Sig/Elliott Route Start Time Stop Time Status Last Admin Dose Admin Ondansetron HCl 4 mg Q4HP PRN IV 04/29/25 11:30 Acetaminophen 650 mg Q6HP PRN PO 04/29/25 11:30 Nitroglycerin 0.4 mg Q5MINP PRN SL 04/29/25 11:30 Morphine Sulfate 2 mg Q30M PRN IV 04/29/25 11:30 04/29/25 18:41 2 MG Ceftriaxone Sodium 50 ml @ 100 mls/hr DAILY@09 IV 04/30/25 09:00 05/02/25 09:28 100 MLS/HR Azithromycin 250 ml @ 125 mls/hr DAILY IV 04/30/25 10:00 05/02/25 10:00 125 MLS/HR Methylprednisolone Sodium Succinate 80 mg BID IV 04/29/25 22:00 05/02/25 09:27 80 MG Clopidogrel Bisulfate 75 mg DAILY PO 04/29/25 12:30 05/02/25 09:24 75 MG Guaifenesin/ Dextromethorphan 10 ml Q4HP PRN PO 04/29/25 14:45 05/01/25 22:42 10 ML Amlodipine Besylate 10 mg DAILY GT 04/30/25 10:00 05/02/25 09:27 10 MG Gabapentin 100 mg TID PO 04/29/25 22:00 05/02/25 05:33 100 MG Losartan Potassium 50 mg BID PO 04/29/25 22:00 05/02/25 09:26 50 MG Phenytoin Sodium 400 mg DAILY PO 04/30/25 10:00 05/02/25 09:27 400 MG Tamsulosin HCl 0.4 mg BID PO 04/29/25 22:00 05/02/25 09:28 0.4 MG Patient Own Medication 2 mg DAILY PO 04/30/25 10:00 Atorvastatin Calcium 40 mg DAILY PO 04/30/25 10:00 05/02/25 09:27 40 MG Duloxetine HCl 120 mg DAILY PO 04/30/25 10:00 05/02/25 09:27 120 MG Morphine Sulfate 1 mg Q4HP PRN IV 04/29/25 22:30 05/01/25 21:53 1 MG Lorazepam 1 mg Q2HP PRN IV 04/30/25 02:30 04/30/25 02:28 1 MG Albuterol 2.5 mg Q6HR NEB 05/01/25 06:00 05/02/25 11:08 2.5 MG Ipratropium [place] 0.5 mg Q6HR NEB 05/01/25 06:00 05/02/25 11:09 0.5 MG laboratory and microbiology Laboratory Tests 04/30/25 04:52 Test 04/30/25 04:52 Range/Units Serum Glucose 166 H 74-106 mg/dL Assessment/Plan Impression Acute hypoxemic respiratory failure Acute COPD exacerbation Hx of prostate cancer Pneumonia vs mass Atelectasis Patient seen and examined Events Low oxygen requirements On 2 liters nasal cannula No distress Labs and imaging reviewed Management Supplemental oxygen Titrate to maintain sats 90% or above Incentive spirometry Continue antibiotics F/u cultures Bronchodilators Steroids for COPD management Monitor renal function Monitor electrolytes Supplement as needed DVT prophylaxis Dietary Evaluation Review Recommendations by RD: Increase Calorie Intake Comments: 1) Initiate Nepro qd 2) Encourage optimal PO intake 3) Collect HbA1C 4) Follow-up with oncology, nephrology, and cardiology 5) Continue to monitor I&O, labs, and skin integrity Expected Outcomes/Goals: 1) appetite and labs to improve 2) f/u in 3-5 days Plan discussed with: Patient PRIMO MARIN MD May 02, 2025 18:54
[2025-05-02] MEDS ORDERED: MORPHINE SULFATE 4 MG/ML SYR/VIAL IV PRN (21:45)
[2025-05-02] MEDS: MORPHINE SULFATE 4 MG/ML SYR/VIAL IV PRN (23:49)
[2025-05-03] VITALS (15 sets, daily range): BP systolic 110–143; BP diastolic 68–96; PULSE 50–95; RESP 12–19; TEMP 97.5–98.4; O2SAT 95–99
--- NOTE | 2025-05-03 07:28 | ECG ---
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
--- NOTE | 2025-05-03 07:28 | ECG ---
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
--- NOTE | 2025-05-03 08:23 | DVHPN2 ---
Reviewed: Care Plan, H&P, Labs, Medications, Previous Orders, Radiology Changes from previous H/P or p: No Changes Respiratory: Shortness of breath Objective Vitals Vital Signs Date Time Temp Pulse Resp B/P (MAP) Pulse Ox O2 Delivery O2 Flow Rate FiO2 05/03/25 06:12 72 12 98 05/03/25 06:06 Nasal Cannula 2.0 05/03/25 06:06 28 05/03/25 05:00 98.0 130/77 (94) 98.0 Intake/Output Intake and Output 05/03/25 07:00 Intake Total 1850 ml Output Total 2425 ml Balance -575 ml Intake Oral 1550 ml IV Total 300 ml Output Urine Total 2425 ml Medications Current Medications Medications Dose Ordered Sig/Elliott Route Start Time Stop Time Status Last Admin Dose Admin Ondansetron HCl 4 mg Q4HP PRN IV 04/29/25 11:30 Acetaminophen 650 mg Q6HP PRN PO 04/29/25 11:30 Nitroglycerin 0.4 mg Q5MINP PRN SL 04/29/25 11:30 Ceftriaxone Sodium 50 ml @ 100 mls/hr DAILY@09 IV 04/30/25 09:00 05/02/25 09:28 100 MLS/HR Azithromycin 250 ml @ 125 mls/hr DAILY IV 04/30/25 10:00 05/02/25 10:00 125 MLS/HR Methylprednisolone Sodium Succinate 80 mg BID IV 04/29/25 22:00 05/02/25 21:29 80 MG Clopidogrel Bisulfate 75 mg DAILY PO 04/29/25 12:30 05/02/25 09:24 75 MG Guaifenesin/ Dextromethorphan 10 ml Q4HP PRN PO 04/29/25 14:45 05/01/25 22:42 10 ML Amlodipine Besylate 10 mg DAILY GT 04/30/25 10:00 05/02/25 09:27 10 MG Gabapentin 100 mg TID PO 04/29/25 22:00 05/02/25 21:29 100 MG Losartan Potassium 50 mg BID PO 04/29/25 22:00 05/02/25 09:26 50 MG Phenytoin Sodium 400 mg DAILY PO 04/30/25 10:00 05/02/25 09:27 400 MG Tamsulosin HCl 0.4 mg BID PO 04/29/25 22:00 05/02/25 21:29 0.4 MG Patient Own Medication 2 mg DAILY PO 04/30/25 10:00 Atorvastatin Calcium 40 mg DAILY PO 04/30/25 10:00 05/02/25 09:27 40 MG Duloxetine HCl 120 mg DAILY PO 04/30/25 10:00 05/02/25 09:27 120 MG Lorazepam 1 mg Q2HP PRN IV 04/30/25 02:30 04/30/25 02:28 1 MG Albuterol 2.5 mg Q6HR NEB 05/01/25 06:00 05/03/25 06:06 2.5 MG Ipratropium [place] 0.5 mg Q6HR NEB 05/01/25 06:00 05/03/25 06:05 0.5 MG Morphine Sulfate 1 mg Q4HP PRN IV 05/02/25 21:45 05/02/25 23:49 1 MG Morphine Sulfate 2 mg Q30M PRN IV 05/02/25 21:45 Laboratory Results Laboratory Tests 04/30/25 04:52 Urinalysis Test 04/29/25 21:00 Urine Color Yellow (Yellow) Urine Clarity Clear (Clear) Urine pH 5.5 (5.0-9.0) Urine Specific [place] 1.026 (1.001-1.035) Urine Protein Trace (Negative) H Urine Ketones Trace (Negative) Urine Blood Negative /uL (Negative) Urine Nitrite Negative (Negative) Urine Bilirubin Negative (Negative) Urine Urobilinogen Normal mg/dL (Negative) Urine Leukocyte Esterase Negative /uL (Negative) Urine RBC 2 /hpf (0 - 3) Urine Microscopic WBC 1 /HPF (0-3) Urine Squamous Epithelial Cells Few /hpf (<5) Urine Bacteria Few /hpf (None Seen) H Urine Hyaline Casts Few /lpf (0 - 2) Urine Mucus Few (None Seen) Urine Glucose Normal mg/dL (Normal) Microbiology Microbiology Date/Time Source Procedure Growth Status 04/29/25 18:27 Nose MRSA Screen - Final Complete 04/29/25 11:20 Blood Blood Culture - Preliminary NO GROWTH AFTER 72 HOURS OF INCUBATION. Resulted Labs and/or images reviewed: Labs reviewed by me, Image(s) reviewed by me Assessment/Plan Assessment/Plan Acute hypoxic respiratory failure oxygen by nasal cannula Bilateral community-acquired pneumonia Gram-positive versus Gram-negative: Rocephin azithromycin albuterol Atrovent Solu-Medrol, consult for Dr. Juarez appreciated 2.5 cm left upper lobe nodules by CT , Radiology advised follow up CT in three months Severe emphysema Acute on chronic COPD exacerbation Hypertension Hypercholesterolemia CKD History of CVA Depression Seizures History of prostate cancer on chemo Moderate dehydration Severe malnutrition Darlin test negative Flu test negative D-dimer elevated 4.14 DVT ruled out PE ruled out Time spent 55 minutes Discussed with the patient about IV antibiotics for two weeks and he is willing to go to senior living facility; his still grieving from her mom's last week. Plan discussed with: Patient My Orders Orders - BRUNA ALMEIDA MD Procedure Category Date Status Time Insert Midline ORDERS 05/03/25 Transmitted 08:18 Date of Service: May 03, 2025 Billing Provider: BRUNA ALMEIDA MD Common Visit Codes: [id number] INP/OBS CARE(HIGH) BRUNA ALMEIDA MD May 03, 2025 08:23
--- NOTE | 2025-05-03 08:30 | DVHDS2 ---
Discharge Summary Date of Admission Apr 29, 2025 at 11:21 Date of Discharge: May 03, 2025 Admitting Diagnosis Shortness of breath Wounds: None Labs/Diagnostic Data: Laboratory Results Test 04/30/25 14:11 04/30/25 14:00 04/30/25 04:52 04/29/25 21:00 D-Dimer, Quantitative 4.14 mg/L FEU (0.0-0.49) Influenza Type A Antigen Negative (Negative) Influenza Type B Antigen Negative (Negative) SARS-CoV-2 Antigen (Rapid) Negative (NEGATIVE) White Blood Count 6.4 10^3/uL (4.4-10.8) Red Blood Count 4.14 10^6/uL (4.5-5.90) Hemoglobin 12.8 g/dL (13.5-17.5) Hematocrit 37.9 % (41.0-53.0) Mean Corpuscular Volume 91.5 fL (80.0-100.0) Mean Corpuscular Hemoglobin 30.8 pg (28.0-32.0) Mean Corpuscular Hemoglobin Concent 33.7 g/dL (32.0-36.0) Red Cell Distribution Width 13.5 % (11.8-14.3) Platelet Count 202 10^3/uL (140-450) Mean Platelet Volume 9.1 fL (6.9-10.8) Neutrophils (%) (Auto) 86.4 % (37.0-80.0) Lymphocytes (%) (Auto) 9.1 % (10.0-50.0) Monocytes (%) (Auto) 4.3 % (0.0-12.0) Eosinophils (%) (Auto) 0.0 % (0.0-7.0) Basophils (%) (Auto) 0.2 % (0.0-2.0) Neutrophils # (Auto) 5.5 10 ^3/uL (1.6-8.6) Lymphocytes # (Auto) 0.6 10 ^3/uL (0.4-5.4) Monocytes # (Auto) 0.3 10 ^3/uL (0-1.3) Eosinophils # (Auto) 0 10 ^3/uL (0-0.8) Basophils # (Auto) 0 10 ^3/uL (0-0.2) Nucleated Red Blood Cells 0.0 % Sodium Level 142 mmol/L (136-145) Potassium Level 4.8 mmol/L (3.5-5.1) Chloride Level 109 mmol/L (98-107) Carbon Dioxide Level 23 mmol/L (20-31) Anion Gap 10 (5-15) Blood Urea Nitrogen 33 mg/dL (9-23) Creatinine 1.52 mg/dL (0.700-1.30) Glomerular Filtration Rate Calc 47 mL/min (>90) BUN/Creatinine Ratio 21.7 (10.0-20.0) Serum Glucose 166 mg/dL (74-106) Calcium Level 9.6 mg/dL (8.7-10.4) Total Bilirubin 0.2 mg/dL (0.2-1.0) Aspartate Amino Transferase (AST) 28 U/L (<34) Alanine Aminotransferase (ALT) 26 U/L (7-40) Alkaline Phosphatase 115 U/L (46-116) Total Protein 6.6 g/dL (5.7-8.2) Albumin 3.8 g/dL (3.2-4.8) Urine Color Yellow (Yellow) Urine Clarity Clear (Clear) Urine pH 5.5 (5.0-9.0) Urine Specific [place] 1.026 (1.001-1.035) Urine Protein Trace (Negative) Urine Ketones Trace (Negative) Urine Blood Negative /uL (Negative) Urine Nitrite Negative (Negative) Urine Bilirubin Negative (Negative) Urine Urobilinogen Normal mg/dL (Negative) Urine Leukocyte Esterase Negative /uL (Negative) Urine RBC 2 /hpf (0 - 3) Urine Microscopic WBC 1 /HPF (0-3) Urine Squamous Epithelial Cells Few /hpf (<5) Urine Bacteria Few /hpf (None Seen) Urine Hyaline Casts Few /lpf (0 - 2) Urine Mucus Few (None Seen) Urine Glucose Normal mg/dL (Normal) Urine Opiates Screen Neg (NEGATIVE) Urine Fentanyl Screen Neg (NEGATIVE) Urine Barbiturates Screen Neg (NEGATIVE) Urine Phencyclidine Screen Neg (NEGATIVE) Urine Amphetamines Screen Neg (NEGATIVE) Urine Benzodiazepines Screen Neg (NEGATIVE) Urine Cocaine Screen Neg (NEGATIVE) Urine Cannabinoids Screen Neg (NEGATIVE) Test 04/29/25 11:20 04/29/25 10:08 04/29/25 09:00 Lactic Acid Level 1.9 mmol/L (0.4-2.0) Troponin I High Sensitivity 5 ng/L (</=54) Magnesium Level 2.2 mg/dL (1.6-2.6) B-Type Natriuretic Peptide 80.76 pg/mL (0-100) Other Laboratory Tests 04/30/25 04:52 Brief Hx & Hospital Course: 74-year-old male with multiple medical problems including COPD hypertension hypercholesterolemia depression seizures history of prostate cancer on chemo chronic kidney disease not on home oxygen came in for shortness of breaths found to have community-acquired pneumonia. Treated with Rocephin azithromycin albuterol Atrovent Solu-Medrol CT chest showed possible 2.5 cm left upper lobe nodule Radiology advised follow up in three months seen by pulmonology Dr. Hakeem Crespo for pneumonia and COPD exacerbation. Darlin test negative flu test negative D-dimer elevated 4.14 DVT ruled out PE ruled out patient on 3 L of oxygen by nasal cannula. We will be discharged to nursing home facility for IV antibiotics for two weeks for pneumonia the plan is agreeable with the patient. His 's mom one week ago and his still grieving. Consults/Reason for consult Pulmonology Dr. Juarez Operations or Procedures CT angio chest with contrast Condition at Discharge: Fair Final Diagnosis/Problems List Acute hypoxic respiratory failure oxygen by nasal cannula Bilateral community-acquired pneumonia Gram-positive versus Gram-negative: Rocephin azithromycin albuterol Atrovent Solu-Medrol, consult for Dr. Juarez appreciated 2.5 cm left upper lobe nodules by CT , Radiology advised follow up CT in three months Severe emphysema Acute on chronic COPD exacerbation Hypertension Hypercholesterolemia CKD History of CVA Depression Seizures History of prostate cancer on chemo Moderate dehydration Severe malnutrition Darlin test negative Flu test negative D-dimer elevated 4.14 DVT ruled out PE ruled out Discharge Disposition: Snf Facility Discharge Instruct/Medications Diet: Cardiac 2g Na,low cholest Activity: Light activity Follow Up/Referral: Follow up with the long-term Medications: Rocephin 1 g IV daily for two weeks Azithromycin 500 mg IV daily for two weeks See list for other meds 39 (Time taken for discharge summary 39 minutes) Discharge Statement: "Patient was advised to return to the ER or call 911 if any headaches, dizziness, shortness of breath, chest pain, abdominal pain, bleeding, fevers, or worsening of medical condition. Patient was counseled about treatment plan, medications, possible side effects, patientverbalized understanding. All questions were answered to the best of my ability. This discharge took greater then 30 minutes in planning, reviewing documentation, counseling the patient, and discussing with other team members." ASSESSMENT ASSESSMENT Hospital Course Marginally improved Assessment Acute hypoxic respiratory failure oxygen by nasal cannula Bilateral community-acquired pneumonia Gram-positive versus Gram-negative: Rocephin azithromycin albuterol Atrovent Solu-Medrol, consult for Dr. Juarez appreciated 2.5 cm left upper lobe nodules by CT , Radiology advised follow up CT in three months Severe emphysema Acute on chronic COPD exacerbation Hypertension Hypercholesterolemia CKD History of CVA Depression Seizures History of prostate cancer on chemo Moderate dehydration Severe malnutrition Darlin test negative Flu test negative D-dimer elevated 4.14 DVT ruled out PE ruled out Date of Service: May 03, 2025 Billing Provider: BRUNA ALMEIDA MD Common Visit Codes: [id number] DISCH DAY >30min BRUNA ALMEIDA MD May 03, 2025 08:30
--- NOTE | 2025-05-03 12:50 | DVHPN2 ---
Progress Note - Dictate Date Seen: May 03, 2025 Medical Necessity Reason Pt with a Central, PICC or Fol: No vital signs Vital Sign Date Time Temp Pulse Resp B/P (MAP) Pulse Ox O2 Delivery O2 Flow Rate FiO2 05/03/25 11:25 78 16 98 05/03/25 11:19 Nasal Cannula 2.0 05/03/25 11:19 28 05/03/25 10:08 136/96 05/03/25 09:00 98.4 98.4 Total Intake and Output 05/02/25 05/02/25 05/03/25 15:00 23:00 07:00 Intake Total 300 ml 950 ml 600 ml Output Total 1800 ml 625 ml Balance 300 ml -850 ml -25 ml medications Current Medications Medications Dose Ordered Sig/[place]ott Route Start Time Stop Time Status Last Admin Dose Admin Ondansetron HCl 4 mg Q4HP PRN IV 04/29/25 11:30 Acetaminophen 650 mg Q6HP PRN PO 04/29/25 11:30 Nitroglycerin 0.4 mg Q5MINP PRN SL 04/29/25 11:30 Ceftriaxone Sodium 50 ml @ 100 mls/hr DAILY@09 IV 04/30/25 09:00 05/03/25 09:41 100 MLS/HR Azithromycin 250 ml @ 125 mls/hr DAILY IV 04/30/25 10:00 05/03/25 11:15 125 MLS/HR Methylprednisolone Sodium Succinate 80 mg BID IV 04/29/25 22:00 05/03/25 09:44 80 MG Clopidogrel Bisulfate 75 mg DAILY PO 04/29/25 12:30 05/03/25 09:42 75 MG Guaifenesin/ Dextromethorphan 10 ml Q4HP PRN PO 04/29/25 14:45 05/01/25 22:42 10 ML Amlodipine Besylate 10 mg DAILY GT 04/30/25 10:00 05/03/25 09:44 10 MG Gabapentin 100 mg TID PO 04/29/25 22:00 05/02/25 21:29 100 MG Losartan Potassium 50 mg BID PO 04/29/25 22:00 05/03/25 09:43 50 MG Phenytoin Sodium 400 mg DAILY PO 04/30/25 10:00 05/03/25 09:43 400 MG Tamsulosin HCl 0.4 mg BID PO 04/29/25 22:00 05/03/25 09:42 0.4 MG Patient Own Medication 2 mg DAILY PO 04/30/25 10:00 Atorvastatin Calcium 40 mg DAILY PO 04/30/25 10:00 05/03/25 09:43 40 MG Duloxetine HCl 120 mg DAILY PO 04/30/25 10:00 05/03/25 09:42 120 MG Lorazepam 1 mg Q2HP PRN IV 04/30/25 02:30 04/30/25 02:28 1 MG Albuterol 2.5 mg Q6HR NEB 05/01/25 06:00 05/03/25 11:19 2.5 MG Ipratropium [place] 0.5 mg Q6HR NEB 05/01/25 06:00 05/03/25 11:19 0.5 MG Morphine Sulfate 1 mg Q4HP PRN IV 05/02/25 21:45 05/03/25 10:08 1 MG Morphine Sulfate 2 mg Q30M PRN IV 05/02/25 21:45 laboratory and microbiology Laboratory Tests 04/30/25 04:52 Test 04/30/25 04:52 Range/Units Serum Glucose 166 H 74-106 mg/dL Assessment/Plan Impression Acute hypoxemic respiratory failure Acute COPD exacerbation Hx of prostate cancer Pneumonia vs mass Atelectasis Patient seen and examined Events Low oxygen requirements On 2 liters nasal cannula No acute events Labs and imaging reviewed Management Supplemental oxygen Titrate to maintain sats 90% or above Incentive spirometry Continue antibiotics F/u cultures Bronchodilators Steroids for COPD management Monitor renal function Monitor electrolytes Supplement as needed Home oxygen evaluation prior to discharge DVT prophylaxis Dietary Evaluation Review Recommendations by RD: Increase Calorie Intake Comments: 1) Initiate Nepro qd 2) Encourage optimal PO intake 3) Collect HbA1C 4) Follow-up with oncology, nephrology, and cardiology 5) Continue to monitor I&O, labs, and skin integrity Expected Outcomes/Goals: 1) appetite and labs to improve 2) f/u in 3-5 days Plan discussed with: Patient PRIMO MARIN MD May 03, 2025 12:50
[2025-05-04] VITALS (11 sets, daily range): BP systolic 106–142; BP diastolic 58–85; PULSE 63–82; RESP 16–20; TEMP 97.1–98.6; O2SAT 92–100
--- NOTE | 2025-05-04 08:19 | DVHPN2 ---
Reviewed: Care Plan, H&P, Labs, Medications, Previous Orders, Radiology Changes from previous H/P or p: No Changes Respiratory: Shortness of breath Objective Vitals Vital Signs Date Time Temp Pulse Resp B/P (MAP) Pulse Ox O2 Delivery O2 Flow Rate FiO2 05/04/25 05:27 74 16 100 05/04/25 05:20 Nasal Cannula 2.0 05/04/25 05:20 28 05/04/25 05:00 97.1 124/85 (98) 97.1 Intake/Output Intake and Output 05/04/25 07:00 Intake Total 1775 ml Output Total 2300 ml Balance -525 ml Intake Oral 1475 ml IV Total 300 ml Output Urine Total 2300 ml # Bowel Movements 1 Medications Current Medications Medications Dose Ordered Sig/Elliott Route Start Time Stop Time Status Last Admin Dose Admin Ondansetron HCl 4 mg Q4HP PRN IV 04/29/25 11:30 Acetaminophen 650 mg Q6HP PRN PO 04/29/25 11:30 Nitroglycerin 0.4 mg Q5MINP PRN SL 04/29/25 11:30 Ceftriaxone Sodium 50 ml @ 100 mls/hr DAILY@09 IV 04/30/25 09:00 05/03/25 09:41 100 MLS/HR Azithromycin 250 ml @ 125 mls/hr DAILY IV 04/30/25 10:00 05/03/25 11:15 125 MLS/HR Methylprednisolone Sodium Succinate 80 mg BID IV 04/29/25 22:00 05/03/25 22:28 80 MG Clopidogrel Bisulfate 75 mg DAILY PO 04/29/25 12:30 05/03/25 09:42 75 MG Guaifenesin/ Dextromethorphan 10 ml Q4HP PRN PO 04/29/25 14:45 05/01/25 22:42 10 ML Amlodipine Besylate 10 mg DAILY GT 04/30/25 10:00 05/03/25 09:44 10 MG Gabapentin 100 mg TID PO 04/29/25 22:00 05/04/25 05:17 100 MG Losartan Potassium 50 mg BID PO 04/29/25 22:00 05/03/25 22:29 50 MG Phenytoin Sodium 400 mg DAILY PO 04/30/25 10:00 05/03/25 09:43 400 MG Tamsulosin HCl 0.4 mg BID PO 04/29/25 22:00 05/03/25 22:28 0.4 MG Patient Own Medication 2 mg DAILY PO 04/30/25 10:00 Atorvastatin Calcium 40 mg DAILY PO 04/30/25 10:00 05/03/25 09:43 40 MG Duloxetine HCl 120 mg DAILY PO 04/30/25 10:00 05/03/25 09:42 120 MG Lorazepam 1 mg Q2HP PRN IV 04/30/25 02:30 04/30/25 02:28 1 MG Albuterol 2.5 mg Q6HR NEB 05/01/25 06:00 05/04/25 05:20 2.5 MG Ipratropium [place] 0.5 mg Q6HR NEB 05/01/25 06:00 05/04/25 05:20 0.5 MG Morphine Sulfate 1 mg Q4HP PRN IV 05/02/25 21:45 05/03/25 22:30 1 MG Morphine Sulfate 2 mg Q30M PRN IV 05/02/25 21:45 Laboratory Results Laboratory Tests 04/30/25 04:52 Urinalysis Test 04/29/25 21:00 Urine Color Yellow (Yellow) Urine Clarity Clear (Clear) Urine pH 5.5 (5.0-9.0) Urine Specific [place] 1.026 (1.001-1.035) Urine Protein Trace (Negative) H Urine Ketones Trace (Negative) Urine Blood Negative /uL (Negative) Urine Nitrite Negative (Negative) Urine Bilirubin Negative (Negative) Urine Urobilinogen Normal mg/dL (Negative) Urine Leukocyte Esterase Negative /uL (Negative) Urine RBC 2 /hpf (0 - 3) Urine Microscopic WBC 1 /HPF (0-3) Urine Squamous Epithelial Cells Few /hpf (<5) Urine Bacteria Few /hpf (None Seen) H Urine Hyaline Casts Few /lpf (0 - 2) Urine Mucus Few (None Seen) Urine Glucose Normal mg/dL (Normal) Microbiology Microbiology Date/Time Source Procedure Growth Status 04/29/25 18:27 Nose MRSA Screen - Final Complete 04/29/25 11:20 Blood Blood Culture - Preliminary NO GROWTH AFTER 72 HOURS OF INCUBATION. Resulted Labs and/or images reviewed: Labs reviewed by me, Image(s) reviewed by me Assessment/Plan Assessment/Plan Acute hypoxic respiratory failure oxygen by nasal cannula Bilateral community-acquired pneumonia Gram-positive versus Gram-negative: Rocephin azithromycin albuterol Atrovent Solu-Medrol, consult for Dr. Juarez appreciated 2.5 cm left upper lobe nodules by CT , Radiology advised follow up CT in three months Severe emphysema Acute on chronic COPD exacerbation Hypertension Hypercholesterolemia CKD History of CVA Depression Seizures History of prostate cancer on chemo Moderate dehydration Severe malnutrition Darlin test negative Flu test negative D-dimer elevated 4.14 DVT ruled out PE ruled out Patient awaiting transportation to the shelter facility Plan discussed with: Patient My Orders Orders - BRUNA ALMEIDA MD Procedure Category Date Status Time Insert Midline ORDERS 05/03/25 Transmitted 08:18 Discharge DISCHARGE 05/03/25 Transmitted 08:23 Pt Request For Service PT 05/03/25 Logged 08:25 * Client Retention Specialist CONS 05/03/25 Transmitted Consult Date of Service: May 04, 2025 Billing Provider: BRUNA ALMEIDA MD Common Visit Codes: [id number] INP/OBS CARE(HIGH) BRUNA ALMEIDA MD May 04, 2025 08:19
== END 2025-05-04 13:24 | DRG 177 ==
LOC: ER 08:19 → EDBD 08:19 → EDUNIT# 11:21 → OVERFLOW 11:21 → TELE-CENTR 12:28
PROVIDERS: ADMIT Family Medicine; ATTEND Family Medicine
PROC: 05H933Z Insertion of Infusion Device into Right Brachial Vein, Percutaneous Approach (ICD-10-PCS; principal; 2025-05-03)
PROC: B54CZZA Ultrasonography of Left Lower Extremity Veins, Guidance (ICD-10-PCS; 2025-05-03)
DX: J15.69 Pneumonia due to other Gram-negative bacteria (principal); E43 Unspecified severe protein-calorie malnutrition; J96.21 Acute and chronic respiratory failure with hypoxia; J44.1 Chronic obstructive pulmonary disease with (acute) exacerbation; J98.11 Atelectasis; J44.0 Chronic obstructive pulmonary disease with (acute) lower respiratory infection; Z68.1 Body mass index [BMI] 19.9 or less, adult; J15.9 Unspecified bacterial pneumonia; Z20.822 Contact with and (suspected) exposure to COVID-19; R56.9 Unspecified convulsions; F32.A Depression, unspecified; J43.9 Emphysema, unspecified; N18.9 Chronic kidney disease, unspecified; I12.9 Hypertensive chronic kidney disease with stage 1 through stage 4 chronic kidney disease, or unspecified chronic kidney disease; E86.0 Dehydration; I49.3 Ventricular premature depolarization; E78.00 Pure hypercholesterolemia, unspecified; N40.0 Benign prostatic hyperplasia without lower urinary tract symptoms; Z92.3 Personal history of irradiation; Z86.73 Personal history of transient ischemic attack (TIA), and cerebral infarction without residual deficits; Z85.46 Personal history of malignant neoplasm of prostate; Z51.11 Encounter for antineoplastic chemotherapy
CPT/HCPCS: 36415; 71045; 71250; 78582; 80048; 80053; 80307; 81001; 83605; 83735; 83880; 84484; 85025; 85379; 87040; 87081; 87426; 87804; 93005; 93970; 94640; 96365; 96375; 97163; 99291; G0378; J0692